=== PATIENT | female | born 1955 | race Caucasian/White ===

== ENCOUNTER → 2016-10-04 | Day surgery (SDC) | payer OTHER ==
[~2016-10-04] MED LIST: ALPR0.5T3 PO; BUPIVACAINE HCL PF 0.5% 30 ML VIAL ONE; CYCL1TAB29 PO; ESTR.3 PO; ESTR.625 PO; IBUP200T2 PO; MULT-65 PO; PROPOFOL 200 MG/20 ML AMP IV ONE; TRIAMCINOLONE ACETONIDE 40 MG/ML VIAL I-ARTICULR ONE; methylPREDNISolone ACETATE 40 MG/ML VIAL I-ARTICULR ONE
--- NOTE | 2016-10-05 22:08 | M6 ---
cc: MELINDA HILL M.D. DATE: 10/04/2016. DATE OF : 1955. PROCEDURE PERFORMED: Fluoroscopically-guided injection right sacroiliac joint. DESCRIPTION OF THE PROCEDURE IN DETAIL: History and physical was completed and signed. Consent was signed. Procedure site was marked. Medications were listed and reconciled. Pain score was recorded. Allergies were noted. Time out was taken. Fluoroscopy time was recorded where applicable. Sedation was administered or directed by Dr. Hill. The patient was given oxygen. The patient was monitored by a registered nurse. Total procedure time was greater than 15 minutes. IV was started, blood pressure cuff, pulse oximeter and EKG were applied. The patient was placed in the prone position on a Estiven table and sedated with small amounts of propofol titrated to effect. Vital signs were monitored and remained stable throughout the procedure. Fluoroscopy was used shooting from medial to lateral to clearly visualize the posterior joint line of the right sacroiliac joint. A sterile 5-inch 22-gauge spinal needle was advanced into the joint under fluoroscopic guidance. There was negative aspiration for blood or any other type of fluid and the patient was given 2 mL of 0.5% Marcaine, 20 mg of Depo-Medrol and 20 mg of Kenalog. Following the procedure, the patient was taken to the recovery room with stable vital signs neurologically intact. W. MD CAR Rondon/DAQUAN /9:42 AM /10:06 PM
== END | disposition home or self-care (01) ==
LOC: PHSDC 08:34
PROVIDERS: ATTEND Pain Medicine Interventional Pain Medicine
DX: M54.5 Low back pain (principal); M25.559 Pain in unspecified hip
CPT/HCPCS: 27096; 99152; J1030; J3301; G0260

== ENCOUNTER 2016-11-17 05:25 | Emergency (ER) | payer OTHER ==
[~2016-11-17] VITALS: Ht 167.6 cm; Wt 62.0 kg
[~2016-11-17 05:25] MED LIST changes: -BUPIVACAINE HCL PF 0.5% 30 ML VIAL ONE; -ESTR.3 PO; -PROPOFOL 200 MG/20 ML AMP IV ONE; -TRIAMCINOLONE ACETONIDE 40 MG/ML VIAL I-ARTICULR ONE; -methylPREDNISolone ACETATE 40 MG/ML VIAL I-ARTICULR ONE
[2016-11-17 05:28] VITALS: BP 165/78; PULSE 97; RESP 16; TEMP 97.9; O2SAT 98
--- NOTE | 2016-11-17 05:43 | PD ---
HPI Chief Complaint: Abdominal Pain Time Seen by Provider: 05:35 Travel History International Travel<30 days: No Contact w/Intl Traveler<30days: No Traveled to known affect area: No History of Present Illness HPI Patient is a 61-year-old female with history of recurrent diverticulitis who presents the emergency department with complaint of abdominal pain. Patient states that for the last days she has had pain in the left lower quadrant, radiates slightly throughout the rest of the abdomen. Pain is achy, occasionally sharp. Associated nausea but no vomiting. Denies any dysuria, frequency. Bowel movements have been regular without diarrhea, hematochezia. No fevers or chills. Patient states this feels fairly similar to her history of recurrent diverticulitis. She has had one microperforation that was managed medically, otherwise no complications from her diverticulitis. Patient is status post hysterectomy, appendectomy and cholecystectomy. PFSH Past Medical History Arthritis: Yes Blood Disorders: No Cancer: No Cardiovascular Problems: Yes (MVP) Diminished Hearing: No Diverticulitis: Yes Gastrointestinal Disorders: Yes Genitourinary: Yes Musculoskeletal: No Neurologic: No Psychiatric: No Respiratory: No Immunizations Current: Yes Menopausal: Yes : 2 Para: 2 Tubal Ligation: Yes Past Surgical History Abdominal Surgery: Yes AICD: No Appendectomy: Yes (1994) Cholecystectomy: Yes (1994) Gynecologic Surgery: Yes (HYSTERECTOMY) Hysterectomy: Yes (PARTIAL 1994) Neurologic Surgery: No Pacemaker: No Tonsillectomy: Yes (as a child) Other Surgery: Yes (UPPER AND LOWER BLEPHAROPLASTY) Social History Alcohol Use: Yes (OCCASIONAL) Tobacco Use: No Substance Use: No Allergies-Medications (Allergen,Severity, Reaction): Coded Allergies: Tylenol (Verified Allergy, Severe, Anaphylaxis, 11/17/16) Morphine (Verified Adverse Reaction, Intermediate, Nausea/Vomiting, 11/17/16 ) Reported Meds & Prescriptions Reported Meds & Active Scripts Active Zofran Odt (Ondansetron Odt) 8 Mg Tab 8 Mg SL Q8H PRN Oxycodone (Oxycodone HCl) 5 Mg Cap 5 Mg PO Q6H PRN Flagyl (Metronidazole) 500 Mg Tab 500 Mg PO TID 7 Days Ciprofloxacin (Ciprofloxacin HCl) 750 Mg Tab 750 Mg PO BID 7 Days Reported Premarin (Estrogens Conjugated) 0.625 Mg Tab 0.625 Mg PO DAILY Multi-Vitamin Daily (Multiple Vitamin) 1 Tab Tab 1 Tab PO DAILY Ibuprofen 200 Mg Tab 400 Mg PO Q6H PRN Flexeril (Cyclobenzaprine HCl) 10 Mg Tab 10 Mg PO TID Alprazolam 0.5 Mg Tab 0.5 Mg PO DAILY PRN Review of Systems Except as stated in HPI: all other systems reviewed are Neg Physical Exam Narrative GENERAL: Well-appearing female in mild distress SKIN: Focused skin assessment warm/dry. HEAD: Normocephalic. EYES: No scleral icterus. No injection or drainage. ENT: Mucous membranes pink and moist. NECK: Supple CARDIOVASCULAR: Regular rate and rhythm. RESPIRATORY: No accessory muscle use. GASTROINTESTINAL: Abdomen soft, left lower quadrant tenderness to palpation without rebound or guarding, nondistended. No CVA tenderness. MUSCULOSKELETAL: Normal gait NEUROLOGICAL: Awake and alert. Normal speech. PSYCHIATRIC: Appropriate mood and affect; insight and judgment normal. Data Data Last Documented VS Vital Signs Date Time Temp Pulse Resp B/P Pulse Ox O2 Delivery O2 Flow Rate FiO2 11/17/16 06:42 18 11/17/16 06:30 85 150/69 98 Room Air 11/17/16 05:28 97.9 Orders Complete Blood Count With Diff (11/17/16 05:39) Comprehensive Metabolic Panel (11/17/16 05:39) Lipase (11/17/16 05:39) Urinalysis - C+S If Indicated (11/17/16 05:39) Iv Access Insert/Monitor (11/17/16 05:39) Ecg Monitoring (11/17/16 05:39) Oximetry (11/17/16 05:39) Ondansetron Inj (Zofran Inj) (11/17/16 05:45) Sodium Chloride 0.9% Flush (Ns Flush) (11/17/16 05:45) Hydromorphone Pf Inj (Dilaudid Pf Inj) (11/17/16 05:45) Acetamin-Hydrocod 325-5 Mg ([place] 5-325 (11/17/16 05:45) Ciprofloxacin 400 Mg Premix (Cipro 400 M (11/17/16 05:45) Metronidazole 500 Mg Inj (Flagyl 500 Mg (11/17/16 05:45) Oxycodone (Roxicodone) (11/17/16 05:45) Labs Laboratory Tests Test 11/17/16 11/17/16 05:50 06:26 White Blood Count 10.1 TH/MM3 Red Blood Count 4.41 MIL/MM3 Hemoglobin 13.8 GM/DL Hematocrit 40.5 % Mean Corpuscular Volume 91.7 FL Mean Corpuscular Hemoglobin 31.3 PG Mean Corpuscular Hemoglobin 34.2 % Concent Red Cell Distribution Width 13.2 % Platelet Count 224 TH/MM3 Mean Platelet Volume 8.2 FL Neutrophils (%) (Auto) 79.3 % Lymphocytes (%) (Auto) 12.7 % Monocytes (%) (Auto) 7.2 % Eosinophils (%) (Auto) 0.6 % Basophils (%) (Auto) 0.2 % Neutrophils # (Auto) 8.0 TH/MM3 Lymphocytes # (Auto) 1.3 TH/MM3 Monocytes # (Auto) 0.7 TH/MM3 Eosinophils # (Auto) 0.1 TH/MM3 Basophils # (Auto) 0.0 TH/MM3 CBC Comment DIFF FINAL Differential Comment Sodium Level 139 MEQ/L Potassium Level 4.2 MEQ/L Chloride Level 105 MEQ/L Carbon Dioxide Level 25.9 MEQ/L Anion Gap 8 MEQ/L Blood Urea Nitrogen 14 MG/DL Creatinine 0.61 MG/DL Estimat Glomerular Filtration 100 ML/MIN Rate Random Glucose 106 MG/DL Calcium Level 8.4 MG/DL Total Bilirubin 0.6 MG/DL Aspartate Amino Transf 27 U/L (AST/SGOT) Alanine Aminotransferase 28 U/L (ALT/SGPT) Alkaline Phosphatase 78 U/L Total Protein 6.8 GM/DL Albumin 3.3 GM/DL Lipase 81 U/L Urine Color YELLOW Urine Turbidity CLEAR Urine pH 8.0 Urine Specific [place] 1.018 Urine Protein TRACE mg/dL Urine Glucose (UA) NEG mg/dL Urine Ketones NEG mg/dL Urine Occult Blood NEG Urine Nitrite NEG Urine Bilirubin NEG Urine Urobilinogen LESS THAN 2.0 MG/DL Urine Leukocyte Esterase NEG Urine RBC 1 /hpf Urine WBC LESS THAN 1 /hpf Urine Squamous Epithelial 1 /hpf Cells Urine Bacteria RARE /hpf Urine Mucus FEW /lpf Microscopic Urinalysis Comment CULT NOT INDICATED MDM Medical Decision Making Medical Screen Exam Complete: Yes Emergency Medical Condition: Yes Medical Record Reviewed: Yes Differential Diagnosis 61-year-old female with history of recurrent diverticulitis here with 1 day of left lower quadrant abdominal pain with nausea similar to her history of her diverticulitis. Differential includes diverticulitis, perforation, abscess, UTI /pyelonephritis, colitis, bowel obstruction, ureterolithiasis. Narrative Course Patient placed on monitor, IV established and blood obtained. Given 0.5 mg Dilaudid, 5 mg oxycodone, 4 mg Zofran and empirically treated with IV Cipro and Flagyl. CBC, CMP, lipase and urinalysis were obtained and unremarkable. Patient felt improved and will be discharged home with antibiotic therapy, analgesics and antiemetics. Diagnosis Primary Impression: Diverticulitis Qualified Code: K57.32 - Diverticulitis of large intestine without perforation or abscess without bleeding Additional Impression: Abdominal pain Qualified Code: R10.32 - Left lower quadrant pain Referrals: Primary Care Physician as needed Additional Instructions: Zofran as needed for nausea, vomiting. Oxycodone as needed for pain. Cipro and Flagyl antibiotics. Follow-up with primary care provider if symptoms persist and return to the ER for the warning signs discussed. Med/Other Pt SpecificInfo: Prescription(s) given Scripts Ondansetron Odt (Zofran Odt)8 Mg Tab8 Mg SL Q8H PRN (NAUSEA OR VOMITING) #10 TAB Ref 0 Prov:Catrachita Carroll MD 11/17/16 Oxycodone 5 Mg Cap5 Mg PO Q6H PRN (PAIN) #15 CAP Ref 0 Prov:Catrachita Carroll MD 11/17/16 Metronidazole (Flagyl)500 Mg [id number] Mg PO TID 7 Days Ref 0 Prov:Catrachita Carroll MD 11/17/16 Ciprofloxacin 750 Mg Top669 Mg PO BID 7 Days Ref 0 Prov:Catrachita Carroll MD 11/17/16 Disposition: 01 DISCHARGE HOME Condition: Stable Catrachita Carroll MD Nov 17, 2016 05:43
[2016-11-17] MEDS ORDERED: SODIUM CHLORIDE 0.9% FLUSH 10 ML FLUSH IV FLUSH PRN (05:45)
[2016-11-17] MEDS ORDERED: ONDANSETRON HCL 4 MG/2 ML VIAL IVP ONE (05:45)
[2016-11-17] MEDS ORDERED: HYDROmorphone HCL PF 1 MG/ML VIAL IVS ONE (05:45)
[2016-11-17] MEDS ORDERED: ACETAMINOPHEN/HYDROcodone 325 MG/5 MG TAB PO ONE (05:45)
[2016-11-17] MEDS ORDERED: CIPROFLOXACIN 400 MG PREMIX 200 ML IV ONE (05:45)
[2016-11-17] MEDS ORDERED: metroNIDAZOLE 500 MG INJ 100 ML IV ONE (05:45)
[2016-11-17 05:54] VITALS: RESP 18; O2SAT 100
[2016-11-17 05:58] LABS: BASOPHIL % 0.2 % (0.0-2.0); EOSINOPHIL # 0.1 TH/MM3 (0-0.4); EOSINOPHIL % 0.6 % (0.0-4.0); HEMATOCRIT 40.5 % (35.0-46.0); HEMO FLAGS DIFF FINAL; LYMPH % 12.7 % (9.0-44.0); LYMPHOCYTE # 1.3 TH/MM3 (1.0-4.8); MEAN CELL VOLUME 91.7 FL (80.0-100.0); MEAN CORPUSCULAR HEMOGLOBIN 31.3 PG (27.0-34.0); MEAN CORPUSCULAR HGB CONC 34.2 % (32.0-36.0); MONO % 7.2 % (0.0-8.0); NEUT % 79.3 % (16.0-70.0); PLATELET COUNT 224 TH/MM3 (150-450); RED BLOOD COUNT 4.41 MIL/MM3 (4.00-5.30); RED CELL DISTRIBUTION WIDTH 13.2 % (11.6-17.2); WHITE BLOOD COUNT 10.1 TH/MM3 (4.0-11.0)
[2016-11-17 06:23] LABS: ALKALINE PHOSPHATASE 78 U/L (45-117); TOTAL BILIRUBIN ADULT 0.6 MG/DL (0.2-1.0)
[2016-11-17 06:30] VITALS: BP 150/69; PULSE 85; RESP 18; O2SAT 98
[2016-11-17 06:32] LABS: ALT (GPT) 28 U/L (10-53); ANION GAP 8 MEQ/L (5-15); AST (GOT) 27 U/L (15-37); BICARBONATE 25.9 MEQ/L (21.0-32.0); BLOOD UREA NITROGEN 14 MG/DL (7-18); CHLORIDE 105 MEQ/L (98-107); GLOMERULAR FILTRATION RATE 100 ML/MIN (>89); POTASSIUM 4.2 MEQ/L (3.5-5.1); SODIUM (NA) 139 MEQ/L (136-145)
[2016-11-17] MEDS ORDERED: OXYC1CAP PO (06:38)
[2016-11-17] MEDS ORDERED: METR-1 PO (06:38)
[2016-11-17] MEDS ORDERED: CIPR750T2 PO (06:38)
[2016-11-17] MEDS ORDERED: ZOFR8TAB4 SL (06:38)
[2016-11-17 06:48] LABS: BACTERIA, URINE RARE /hpf; BLOOD, URINE NEG (NEG); COMMENT (UR) CULT NOT INDICATED; CULTURE IF INDICATED CULT NOT INDICATED; GLUCOSE,URINE NEG (NEG); KETONE, URINE NEG (NEG); MUCUS URINE FEW /lpf (OCC); NITRITE,URINE NEG (NEG); SQUAMOUS EPITHELIAL CELL URINE 1 /hpf (0-5); URINE COLOR YELLOW (YELLW/STRAW)
[2016-11-17 07:00] VITALS: BP 135/64; PULSE 87; RESP 20; O2SAT 97
[2016-11-17] MEDS ORDERED: HYDROmorphone HCL PF 1 MG/ML VIAL IV PUSH ONE (07:00)
== END 2016-11-17 08:03 | disposition home or self-care (01) ==
LOC: NEPE 05:25
DX: K57.32 Diverticulitis of large intestine without perforation or abscess without bleeding (principal); Z90.710 Acquired absence of both cervix and uterus
CPT/HCPCS: 80053; 81001; 83690; 85025; 96365; 96366; 96375; 99284; J0744; J1170; J2405

== ENCOUNTER → 2017-01-15 | Outpatient (CLI) | payer OTHER ==
[~2017-01-15] VITALS: Ht 159 cm; Wt 70.8 kg
[~2017-01-15] MED LIST changes: +CHLORHEXIDINE GLUCONATE 2 % 1 PACK (2 CLOTHS) TOPICAL PRN; +CIPR750T2 PO; +DEXTROSE 5% IN WATE 1000ML INJ 1,000 ML IV SCH; +INSULIN HUMAN REGULAR 1,000 UNITS/10 ML VIAL SQ PRN; +LACTATED RINGER'S 1000 ML IV PRN; +LIDOCAINE HCL 1% PF 5 ML AMPULE OTHER ONE; +METOPROLOL TARTRATE 25 MG TAB PO PRN; +METR-1 PO; +OXYC1CAP PO; +POVIDONE IODINE 5% (ANTISEPSIS KIT) 4 APPLICATIONS EACH NARE PRN; +PROPOFOL 200 MG/20 ML AMP IV PUSH ONE; +SODIUM CHLORID 0.9% 500 ML IV PRN; +VECURONIUM BROMIDE 20 MG VIAL IV ONE; +ZOFR8TAB4 SL
[2017-01-15 11:02] VITALS: BP 152/80; PULSE 23; RESP 16; TEMP 97.9; O2SAT 97
--- NOTE | 2017-01-15 11:50 | PD.HP.UP ---
H&P Update Note The Pre-Admit History and Physical Examination regarding the above named patient was reviewed (including, but not limited to, vital signs, heart, lungs, co-morbid conditions), and upon re-examination it is noted that: the patient's condition has not significantly changed since the last examination. Norris Posey MD Jan 15, 2017 11:50
--- NOTE | 2017-01-15 13:36 | MR ---
cc: SHITAL RIOS ANDREW H. M.D. DATE 01/15/2017 PREOPERATIVE DIAGNOSIS History of diverticulitis, abnormal CT scan. PROCEDURE Colonoscopy to cecum. POSTOPERATIVE DIAGNOSIS 1. Normal cecum, ileocecal valve 2. Pancolonic diverticulosis 3. Tortuous rectosigmoid with diverticulosis SURGEON Dr. Posey PROCEDURE The patient was placed in the left lateral decubitus position after adequate anesthesia sedation. Rectal exam confirmed the emptiness in the rectal vault. The Olympus colonoscope was then introduced into rectum and advanced easily under direct vision through the proximal colon until the cecum was identified. The ileocecal valve was normal. There were no vascular abnormalities noted in the cecum. The colonoscope was then gradually withdrawn noting pancolonic diverticulosis. There was some tortuosity and redundancy of the sigmoid colon. Diverticulosis was noted, but no evidence of narrowing or excessive mucosal edema. No polyps were seen. No evidence of acute mucosal colitis. The distal rectosigmoid appeared pretty normal. The patient tolerated the procedure quite well and was brought to the recovery room in stable condition. MD KRYSTINA Fofana/KIRBY /12:57 PM /1:28 PM
--- NOTE | 2017-01-15 13:58 | EKG ---
Date Performed: 01/15/2017 Time Performed: 10:51:56 PTAGE: 61 years EKG: Sinus rhythm BORDERLINE ECG PREVIOUS TRACING : 05/17/2013 12.31 DOCTOR: Azael Charles Interpretating Date/Time 01/15/2017 13:57:04
[2017-01-15 14:06] VITALS: BP 172/83; PULSE 82; RESP 18; TEMP 97.7; O2SAT 97
--- NOTE | 2017-01-31 17:20 | HHI.PR ---
Subjective Remarks Pt was stable post-op A/P Assessment and Plan OK for dc home RTO 1 -2 weeks Norris oPsey MD Jan 31, 2017 17:20
== END ==
LOC: HSDC 10:03
PROVIDERS: ATTEND Colon & Rectal Surgery
DX: K57.30 Diverticulosis of large intestine without perforation or abscess without bleeding (principal); R94.8 Abnormal results of function studies of other organs and systems; Z01.810 Encounter for preprocedural cardiovascular examination
CPT/HCPCS: 00810; 45378; 93005; J7120

== ENCOUNTER → 2017-03-18 | Outpatient (CLI) | payer OTHER ==
[~2017-03-18] MED LIST changes: -CHLORHEXIDINE GLUCONATE 2 % 1 PACK (2 CLOTHS) TOPICAL PRN; -CIPR750T2 PO; +CYCL10TA PO; -CYCL1TAB29 PO; -DEXTROSE 5% IN WATE 1000ML INJ 1,000 ML IV SCH; -IBUP200T2 PO; +IBUP200T47 PO; -INSULIN HUMAN REGULAR 1,000 UNITS/10 ML VIAL SQ PRN; -LACTATED RINGER'S 1000 ML IV PRN; -LIDOCAINE HCL 1% PF 5 ML AMPULE OTHER ONE; -METOPROLOL TARTRATE 25 MG TAB PO PRN; -METR-1 PO; -OXYC1CAP PO; -POVIDONE IODINE 5% (ANTISEPSIS KIT) 4 APPLICATIONS EACH NARE PRN; -PROPOFOL 200 MG/20 ML AMP IV PUSH ONE; -SODIUM CHLORID 0.9% 500 ML IV PRN; -VECURONIUM BROMIDE 20 MG VIAL IV ONE; -ZOFR8TAB4 SL
[2017-03-18 09:49] LABS: AUTOMATED NEUTROPHIL # 2.6 TH/MM3 (1.8-7.7); BASOPHIL % 0.3 % (0.0-2.0); EOSINOPHIL % 1.1 % (0.0-4.0); HEMATOCRIT 39.4 % (35.0-46.0); HEMO FLAGS DIFF FINAL; LYMPHOCYTE # 1.2 TH/MM3 (1.0-4.8); MEAN CELL VOLUME 90.6 FL (80.0-100.0); MEAN CORPUSCULAR HEMOGLOBIN 31.1 PG (27.0-34.0); MEAN CORPUSCULAR HGB CONC 34.3 % (32.0-36.0); MONO % 6.6 % (0.0-8.0); PLATELET COUNT 241 TH/MM3 (150-450); RED BLOOD COUNT 4.35 MIL/MM3 (4.00-5.30); RED CELL DISTRIBUTION WIDTH 12.9 % (11.6-17.2); WHITE BLOOD COUNT 4.1 TH/MM3 (4.0-11.0)
[2017-03-18 13:02] LABS: BACTERIA, URINE RARE /hpf; BLOOD, URINE NEG (NEG); COMMENT (UR) CULT NOT INDICATED; CULTURE IF INDICATED CULT NOT INDICATED; GLUCOSE,URINE NEG (NEG); KETONE, URINE NEG (NEG); MUCUS URINE FEW /lpf (OCC); NITRITE,URINE NEG (NEG); SQUAMOUS EPITHELIAL CELL URINE 1 /hpf (0-5); URINE COLOR YELLOW (YELLW/STRAW)
[2017-03-18 13:03] LABS: ANION GAP 7 MEQ/L (5-15); AST (GOT) 21 U/L (15-37); BICARBONATE 26.7 MEQ/L (21.0-32.0); BLOOD UREA NITROGEN 16 MG/DL (7-18); CHLORIDE 104 MEQ/L (98-107); GLOMERULAR FILTRATION RATE 106 ML/MIN (>89); GLUCOSE,FASTING 93 MG/DL (74-99); POTASSIUM 3.8 MEQ/L (3.5-5.1); SODIUM (NA) 138 MEQ/L (136-145)
[2017-03-18 13:28] LABS: ALKALINE PHOSPHATASE 64 U/L (45-117); ALT (GPT) 24 U/L (10-53); FREE T3 2.58 PG/ML (2.18-3.98); FREE T4 1.06 NG/DL (0.76-1.46); HDL CHOLESTEROL 77.3 MG/DL (40.0-60.0); LDL CHOLESTEROL 120 MG/DL (0-99); TOTAL BILIRUBIN ADULT 0.4 MG/DL (0.2-1.0)
[2017-03-18 15:01] LABS: HEMOGLOBIN A1b 0.8 %; HEMOGLOBIN F 0.7 %; HEMOGLOBIN LA1C 1.9 %; HEMOGLOBIN P3 3.6 %
== END ==
LOC: OLAB 09:26
PROVIDERS: ATTEND Internal Medicine
DX: E78.5 Hyperlipidemia, unspecified (principal); I10 Essential (primary) hypertension; M85.9 Disorder of bone density and structure, unspecified; R53.83 Other fatigue; Z79.899 Other long term (current) drug therapy; Z12.11 Encounter for screening for malignant neoplasm of colon
CPT/HCPCS: 80053; 80061; 81001; 82607; 82652; 83036; 84439; 84443; 84481; 85025

== ENCOUNTER → 2017-03-20 | Day surgery (SDC) | payer OTHER ==
[~2017-03-20] MED LIST changes: +IOHEXOL 180 MG/ML 20 ML VIAL (for RAD DIAG) EPIDURAL ONE; +LIDOCAINE HCL 1% 30 ML VIAL NERV BLOCK ONE; +PROPOFOL 200 MG/20 ML AMP IV ONE; +TRIAMCINOLONE ACETONIDE 40 MG/ML VIAL NERV BLOCK ONE
--- NOTE | 2017-03-20 10:02 | M6 ---
cc: CCList DATE 03/20/2017 DATE OF 1955 PROCEDURE Fluoroscopically guided right L4-5 transforaminal epidural steroid injection. History and physical was completed and signed. Consent was signed. Procedure site was marked. Medications were listed and reconciled. Pain score was recorded. Allergies were noted. Time out was taken. Fluoroscopy time was recorded where applicable. Sedation was administered or directed by Dr. Hill. The patient was given oxygen. The patient was monitored by a registered nurse. Total procedure time was greater than 15 minutes. PROCEDURE NOTE An IV was started, blood pressure cuff, pulse oximeter and EKG were applied. The patient was placed in the prone position on a Estiven table, sedated with small amounts of Versed and propofol titrated to effect. Vital signs were monitored and remained stable throughout the procedure. The patient remained responsive throughout the procedure. The lumbar area was scrubbed with antimicrobial solution, prepped with 10% Betadine solution, and draped with sterile drapes. Fluoroscopy was used in both the AP and lateral projections to clearly visualize the right L4-5 neural foramen. Then separate sterile 22 gauge, 3 1/2-inch Chiba needles were advanced under fluoroscopic guidance into the dorsal-most aspect of each foramen. There was negative aspiration for blood or CSF. There were no reported paresthesias by the patient. There was no washout of 2 mL of Omnipaque. Then after waiting approximately 60 seconds, the patient was slowly given 3 mL of 1% Xylocaine, 3 mL of Omnipaque and 60 mg of Kenalog at that location. Following this, the patient was taken to the recovery room with stable vital signs, neurologically intact. W. Smith Hill MD WRM/SSB /9:38 AM /9:43 AM
== END | disposition home or self-care (01) ==
LOC: PHSDC 07:56
PROVIDERS: ATTEND Pain Medicine Interventional Pain Medicine
DX: M54.41 Lumbago with sciatica, right side (principal)
CPT/HCPCS: 64483; 99152; J3301; Q9965

== ENCOUNTER → 2017-04-24 | Outpatient (CLI) | payer OTHER ==
[~2017-04-24] MED LIST changes: +DIOV80TA4 PO; -IOHEXOL 180 MG/ML 20 ML VIAL (for RAD DIAG) EPIDURAL ONE; -LIDOCAINE HCL 1% 30 ML VIAL NERV BLOCK ONE; +PRIL20TA2 PO; -PROPOFOL 200 MG/20 ML AMP IV ONE; -TRIAMCINOLONE ACETONIDE 40 MG/ML VIAL NERV BLOCK ONE
[2017-04-24 09:06] LABS: AUTOMATED NEUTROPHIL # 2.6 TH/MM3 (1.8-7.7); BASOPHIL % 0.5 % (0.0-2.0); EOSINOPHIL # 0.1 TH/MM3 (0-0.4); EOSINOPHIL % 1.1 % (0.0-4.0); HEMATOCRIT 39.5 % (35.0-46.0); HEMOGLOBIN 13.5 GM/DL (11.6-15.3); LYMPH % 32.3 % (9.0-44.0); LYMPHOCYTE # 1.5 TH/MM3 (1.0-4.8); MEAN CELL VOLUME 90.6 FL (80.0-100.0); MEAN CORPUSCULAR HGB CONC 34.2 % (32.0-36.0); MEAN PLATELET VOLUME 7.3 FL (7.0-11.0); MONO % 8.3 % (0.0-8.0); MONOCYTE # 0.4 TH/MM3 (0-0.9); NEUT % 57.8 % (16.0-70.0); PLATELET COUNT 298 TH/MM3 (150-450); RED BLOOD COUNT 4.36 MIL/MM3 (4.00-5.30); RED CELL DISTRIBUTION WIDTH 12.7 % (11.6-17.2); WHITE BLOOD COUNT 4.6 TH/MM3 (4.0-11.0)
[2017-04-24 12:51] LABS: AMORPHOUS SEDIMENT, URINE MANY; BACTERIA, URINE OCC /hpf; BILIRUBIN, URINE NEG (NEG); BLOOD, URINE NEG (NEG); GLUCOSE,URINE NEG (NEG); KETONE, URINE NEG (NEG); MUCUS URINE FEW /lpf (OCC); NITRITE,URINE NEG (NEG); SQUAMOUS EPITHELIAL CELL URINE 1 /hpf (0-5); URINE COLOR YELLOW (YELLW/STRAW); URINE LEUKOCYTE ESTERASE NEG (NEG)
[2017-04-24 12:53] LABS: ALBUMIN 3.7 GM/DL (3.4-5.0); ALT (GPT) 33 U/L (10-53); AST (GOT) 14 U/L (15-37); BICARBONATE 28.6 MEQ/L (21.0-32.0); BLOOD UREA NITROGEN 17 MG/DL (7-18); CALCIUM 8.6 MG/DL (8.5-10.1); CHLORIDE 106 MEQ/L (98-107); CREATININE 0.55 MG/DL (0.50-1.00); GLOMERULAR FILTRATION RATE 113 ML/MIN (>89); GLUCOSE,FASTING 94 MG/DL (74-99); INTERNATIONAL NORMALIZED RATIO 0.9 RATIO; PROTHROMBIN TIME - PATIENT 9.4 SEC (9.8-11.6); SODIUM (NA) 139 MEQ/L (136-145)
[2017-04-24 12:55] LABS: ALKALINE PHOSPHATASE 66 U/L (45-117); TOTAL BILIRUBIN ADULT 0.4 MG/DL (0.2-1.0); TOTAL PROTEIN 7.2 GM/DL (6.4-8.2)
== END ==
LOC: OLAB 08:47
PROVIDERS: ATTEND Neurological Surgery
DX: Z01.812 Encounter for preprocedural laboratory examination (principal)
CPT/HCPCS: 80053; 81001; 85025; 85610; 85730

== ENCOUNTER → 2017-04-30 | Outpatient (CLI) | payer OTHER ==
[~2017-04-30] MED LIST changes: +OXYC-395 PO; +ZOFR4TAB PO
--- NOTE | 2017-04-30 12:07 | RADRPT ---
EXAM DATE/TIME: 04/30/2017 12:00 [facility] COMPARISON: CHEST PA & LAT, May 17, 2013, 9:18. INDICATIONS : Evaluate for pneumonia, pneumothorax, or communicable disease. Pre-op laminotomy. MEDICAL HISTORY : None. SURGICAL HISTORY : None. ENCOUNTER: Initial ACUITY: 1 day PAIN SCORE: 0/10 LOCATION: Bilateral chest FINDINGS: PA and lateral views of the chest demonstrate the lungs to be symmetrically aerated without evidence of mass, infiltrate or effusion. The cardiomediastinal contours are unremarkable. Osseous structure s are intact. CONCLUSION: Normal examination. Azael Elias MD on April 30, 2017 at 12:04 Board Certified Radiologist. This report was verified electronically.
== END ==
LOC: CPRE 11:18
PROVIDERS: ATTEND Neurological Surgery
DX: Z01.812 Encounter for preprocedural laboratory examination (principal); Z01.811 Encounter for preprocedural respiratory examination; M51.36 Other intervertebral disc degeneration, lumbar region; M71.38 Other bursal cyst, other site
CPT/HCPCS: 71046; 87640; 87641

== ENCOUNTER 2017-05-07 05:52 | Inpatient (IN) | payer OTHER ==
[~2017-05-07] VITALS: Ht 157.5 cm; Wt 69.8 kg
[~2017-05-07 05:52] MED LIST changes: -OXYC-395 PO; -ZOFR4TAB PO
[2017-05-07] MEDS ORDERED: VANCOMYCIN 1000 MG/NS 250 ML ON-CALL IV SCH ×2 (06:15)
[2017-05-07] MEDS ORDERED: SODIUM CHLOR 0.9% 1000 ML INJ 1,000 ML IV SCH (06:15)
[2017-05-07] MEDS ORDERED: POVIDONE IODINE 5% (ANTISEPSIS KIT) 4 APPLICATIONS EACH NARE PRN (06:30)
[2017-05-07] MEDS ORDERED: CHLORHEXIDINE GLUCONATE 2 % 1 PACK (2 CLOTHS) TOPICAL PRN (06:30)
[2017-05-07] MEDS ORDERED: METOPROLOL TARTRATE 25 MG TAB PO PRN (06:30)
[2017-05-07] MEDS ORDERED: LACTATED RINGER'S 1000 ML IV PRN (06:30)
[2017-05-07] MEDS ORDERED: SODIUM CHLORID 0.9% 500 ML IV PRN (06:30)
[2017-05-07] MEDS ORDERED: methylPREDNISolone ACETATE 40 MG/ML VIAL ONE (07:14)
[2017-05-07] MEDS ORDERED: BUPIVACAINE/EPINEPHRINE 0.5% 50 ML VIAL ONE (07:14)
[2017-05-07] MEDS ORDERED: THROMBIN (TOPICAL) 5,000 UNIT VIAL ONE (07:14)
[2017-05-07] MEDS ORDERED: VANCOMYCIN HCL 1000 MG VIAL ONE (07:14)
[2017-05-07] MEDS ORDERED: GELFOAM SIZE 100 ONE (07:15)
[2017-05-07] MEDS ORDERED: fentaNYL CITRATE 250 MCG/5 ML AMP ONE ×2 (07:15)
[2017-05-07] MEDS ORDERED: MIDAZOLAM HCL 5 MG/5 ML VIAL ONE (08:04)
--- NOTE | 2017-05-07 08:23 | MH ---
cc: SHITAL RIOS MD, ROHIT MAYFIELD, W. ROSS DATE OF ADMISSION 05/07/2017 ADMISSION DIAGNOSIS 1. Synovial cyst lumbar facet joint. 2. Facet arthropathy lumbar spine HISTORY OF PRESENT ILLNESS This is a 61-year-old female who presented to our office on 02/08/2016 as well as 02/26/2017 with complaints of lumbosacral back pain with radiation to the right buttock and lateral thigh and, at times, into the lateral aspect of the leg with associated paresthesias. She was found have bilateral L4-L5, L5-S1 facet arthropathy but no significant spinal stenosis or foraminal stenosis on her 02/08/2016 visit. She called our office with worsening complaints of bilateral leg pain and a followup MRI scan was obtained for further evaluation. At her visit on 02/26/2017, she complained of right buttock and right lateral leg pain. She states that the pain was not as excruciating as it was a year ago. However, she had more numbness now in a similar distribution. She states that she has paresthesias on her foot on the right side. She states her leg reynaldo. She denies any bowel or bladder incontinence. She has urinary frequency but states this is chronic. She has had three sacroiliac injections with pain management. She states that the injections have not provided her with any significant relief. She rates her pain as 3-4/10, but with activity it increases to 8-9/10 on a pain scale. PAST MEDICAL HISTORY 1. Hyperlipidemia, 2. Gastroesophageal reflux disease, 3. Osteoarthritis, 4. Anxiety. MEDICATIONS current, 1. Premarin 0.65 mg p.o. daily. 2. Multivitamin daily. 3. Flexeril 10 mg q.8 h p.r.n. muscle spasms. 4. Alprazolam 0.5 mg p.o. daily p.r.n. anxiety. ALLERGIES ACETAMINOPHEN - ANAPHYLAXIS MORPHINE - CAUSES CHEST PAIN FAMILY HISTORY Mother is alive at 86 years old, father is alive at 87 years old. Her sister is alive at 66 years old. Her mother has a history of hypertension and breast cancer. Her father has a history of mild cognitive disorder. His sister has history of hypertension and obesity. SOCIAL HISTORY She is a retired nurse here at [employer]. She is . She has two children. She does not smoke. She drinks alcohol, one or more drinks per week. REVIEW OF SYSTEMS CONSTITUTIONAL: Denies any fever or chills EYES: No blurred vision, double vision. ENT: No pharyngitis, exudates or bloody drainage from her nose. CARDIOVASCULAR: She denies any chest pain, occasional palpitations RESPIRATORY: No cough or shortness of breath GASTROINTESTINAL: No nausea, vomiting, abdominal pain. GENITOURINARY:: No dysuria or hematuria. MUSCULOSKELETAL: Positive for low back pain and leg pain. NEUROLOGIC: No difficulty with speech or memory. PSYCHIATRIC: No anxiety or depression symptoms. SKIN: No rashes or pruritus. ENDOCRINE: No polyuria, polydipsia. HEMATOLOGIC: No bruising or bleeding tendencies. PHYSICAL EXAMINATION HEAD: Normocephalic, atraumatic NECK: Supple. No carotid bruits heard on auscultation. LUNGS: Clear to auscultation bilaterally HEART: Regular rate and rhythm, normal S1, S2. ABDOMEN: Soft, nontender. Positive bowel sounds. SKIN: Reveals no cyanosis or erythema. MUSCULOSKELETAL: She has mild right EHL weakness otherwise 5/5 strength in the lower extremities. She ambulates without any assistive device. NEUROLOGIC: She is awake, alert, oriented. Cranial nerves II-XII appear grossly intact. His speech is fluent. Comprehension is good. Reflexes are 2+ in the lower extremities. IMAGING STUDIES I Reviewed MRI of the lumbar spine from February 17, 2007. reveals development of a moderate size right L4/L5 synovial cyst with spinal and foraminal stenosis along with multilevel facet hypertrophy and disk degeneration. IMPRESSION A 61-year-old female with a chronic history of right paraspinal buttock area pain radiating into the posterior lateral thigh and calf and dorsal and plantar aspect of the foot with numbness in lateral aspect of the foot. She has had the symptoms for over a year, but they have progressed and limit her activity status. She has been using ibuprofen and Celebrex as well as muscle relaxers. Her MRI scan reveals she has developed a moderate sized right L4-L5 synovial cyst with spinal and foraminal stenosis along with multilevel facet hypertrophy and disk degeneration. PLAN We have discussed treatment options with the patient and she has elected to proceed with surgical intervention. We have discussed with her a right L4-L5 hemilaminotomy with synovial cyst resection. We have discussed the procedure as well as the risk, benefit, alternative and recovery time in great detail with the patient. We have discussed the risks involved with surgery include but not limited to bleeding, infection, muscle weakness, voice hoarseness, difficulty swallowing, heart attack, stroke, blood clots as well as cyst reaccumulation among others. The patient states that she understands the procedure and she is requesting that we proceed and she was therefore scheduled accordingly. Dictated by John Apodaca PA-C MD SAMMIE Serrano/ /5:27 PM /8:18 AM
[2017-05-07] MEDS ORDERED: DO NOT ADM ANY ANTICOAGULANT DRUGS PRN (10:47)
[2017-05-07] MEDS ORDERED: ONDANSETRON HCL 4 MG/2 ML VIAL IV PUSH PRN (11:00)
[2017-05-07] MEDS ORDERED: ACETAMINOPHEN/HYDROcodone 325 MG/10 MG TAB PO PRN (11:00)
[2017-05-07] MEDS ORDERED: CYCLOBENZAPRINE HCL 10 MG TAB PO PRN (11:00)
[2017-05-07] MEDS ORDERED: MORPHINE SULFATE 2 MG/ML INJ IM PRN (11:00)
[2017-05-07] MEDS ORDERED: IBUPROFEN 200 MG TAB PO PRN (11:00)
[2017-05-07] MEDS ORDERED: ALPRAZolam 0.5 MG TAB PO PRN (11:00)
[2017-05-07] MEDS ORDERED: OXYC-395 PO (11:03)
[2017-05-07] MEDS ORDERED: CYCL10TA PO (11:03)
[2017-05-07] MEDS ORDERED: HYDROmorphone HCL PF 2 MG/ML VIAL ONE (11:05)
--- NOTE | 2017-05-07 11:09 | PD.OP ---
MD Smith Gao MD Operative Report Date of Surgery: May 07, 2017 Preoperative Diagnosis: Right L4-5 synovial cyst with spinal and foraminal stenosis and associated back pain with intractable radiculopathy Postoperative Diagnosis: Same Procedure: Right L4-5 hemilaminotomy with synovial cyst resection; microsurgical technique Anesthesia: Gen. endotracheal by Kyle meng Surgeon: Lito Lima M.D. Jelly Maker(s): Nancie Pulido Operation and Findings: Following administration of general endotracheal anesthesia, patient received vancomycin 1 g intravenously. Sequential compression devices were placed for DVT prophylaxis. She was then turned in prone position on [place] frame and the Estiven table and all pressure points adequately padded. The lumbar region was then shaved and prepped with a Betadine and ChloraPrep. Sterile draping undertaken with Ioban. Midline incision overlying the L4-5 level was then made after infiltrating the skin with 0.5% Marcaine with epinephrine solution. The skin incision was made extending down through the fascia and then using the subperiosteal plane on the right side the muscular attachments to the spinous process and lamina were detached. Intraoperative fluoroscopy was used for level confirmation and further dissection undertaken using microtechnique with microscope magnification. The inferior portion of the L4 and superior portion of the L5 lamina was then drilled out and the underlying ligamentum flavum also removed. There was facet arthropathy noted in the medial portion of facet was also resected and the lateral recess decompressed and the large synovial cyst originating from the facet extending medially into the spinal canal as well as the foramen was identified. Synovial cyst was resected with internal gelatinous yellowish material. The cyst wall was adherent to the dura which was gently peeled off and no CSF leak or dural perforation encountered. Epidural venous stasis which he with the bipolar cautery along with Gelfoam and thrombin. Depo-Medrol 40 mg was injected in the epidural space. The retractors removed and the muscle fascia proximal using 2-0 Vicryl interrupted stitches. 3 -0 Vicryl subcuticular stitches were also placed in an interrupted fashion and planned skin closure was with Mastisol and Steri-Strips. A sterile dressing was then applied and the patient then turned in the supine position and extubated and taken to recovery room in stable condition. There were no intraoperative complications and all sponge and needle count was correct at the end of the procedure. Estimated blood loss about 25 cc. Lito Lima MD May 07, 2017 11:09
[2017-05-07] MEDS ORDERED: ZOFR4TAB PO (11:13)
[2017-05-07] MEDS ORDERED: ONDANSETRON HCL 4 MG/2 ML VIAL IV ONE (12:00)
[2017-05-07] MEDS ORDERED: ROCURONIUM INJ 50 MG/5 ML SYRINGE IV PUSH ONE (12:00)
[2017-05-07] MEDS ORDERED: GLYCOPYRROLATE 1 MG/5 ML SYRINGE IV PUSH ONE (12:00)
[2017-05-07] MEDS ORDERED: LIDOCAINE HCL 1% PF 5 ML SYRINGE OTHER ONE (12:00)
[2017-05-07] MEDS ORDERED: DEXAMETHASONE SOD PHOS 4 MG/ML VIAL IV ONE (12:00)
[2017-05-07] MEDS ORDERED: NEOSTIGMINE 5 MG/5 ML SYRINGE IV PUSH ONE (12:00)
[2017-05-07] MEDS ORDERED: PROPOFOL 200 MG/20 ML AMP IV ONE (12:00)
[2017-05-07] MEDS ORDERED: PHENYLEPH/NS 1000 MCG/10 ML SYR IV ONE (12:00)
[2017-05-07 12:30] VITALS: BP 150/82; PULSE 83; RESP 18; TEMP 98.6; O2SAT 100
--- NOTE | 2017-05-07 13:12 | RADRPT ---
EXAM DATE/TIME: 05/07/2017 09:14 [facility] COMPARISON: No previous studies available for comparison. INDICATIONS : L4-L5 Laminectomy. MEDICAL HISTORY : None. SURGICAL HISTORY : None. ENCOUNTER: Initial ACUITY: 1 day PAIN SCORE: Non-responsive. LOCATION: lumbar CONCLUSION: Fluoroscopic image demonstrates temporary probes overlying the posterior elements at L4. Radiopaque d ensities are also seen overlying the spinous process at L4. John Tamez MD on May 07, 2017 at 13:09 Board Certified Radiologist. This report was verified electronically.
[2017-05-08] MEDS ORDERED: VALSARTAN 80 MG TAB PO SCH (09:00)
[2017-05-08] MEDS ORDERED: MULTIVITAMIN TAB PO SCH (09:00)
[2017-05-08] MEDS ORDERED: ESTROGENS CONJUGATED 0.625 MG TAB PO SCH (09:00)
[2017-05-08] MEDS ORDERED: PANTOPRAZOLE SOD 20 MG DELAYED RELEASE TAB PO SCH (09:00)
== END 2017-05-07 14:00 | disposition home or self-care (01) | DRG 520 ==
LOC: HSDI 05:52
PROVIDERS: ADMIT Neurological Surgery; ATTEND Neurological Surgery
PROC: 0SB00ZZ Excision of Lumbar Vertebral Joint, Open Approach (ICD-10-PCS; principal; 2017-05-07 08:42)
DX: M48.061 Spinal stenosis, lumbar region without neurogenic claudication (principal); M71.38 Other bursal cyst, other site; M46.86 Other specified inflammatory spondylopathies, lumbar region; M54.16 Radiculopathy, lumbar region; K21.9 Gastro-esophageal reflux disease without esophagitis; E78.5 Hyperlipidemia, unspecified; F41.9 Anxiety disorder, unspecified; M19.90 Unspecified osteoarthritis, unspecified site
CPT/HCPCS: 72020; 76000; J1030; J1100; J1170; J2250; J2370; J2405; J2710; J3010; J3370; J7050; J7120

== ENCOUNTER → 2017-09-01 | Outpatient (CLI) | payer OTHER ==
[~2017-09-01] MED LIST changes: +CELE200C PO; +GABA300C5 PO; +OXYC-395 PO; +PREN29TA PO; +ZOFR4TAB PO
[2017-09-01 13:29] LABS: AUTOMATED NEUTROPHIL # 2.9 TH/MM3 (1.8-7.7); BASOPHIL % 0.5 % (0.0-2.0); EOSINOPHIL # 0.1 TH/MM3 (0-0.4); EOSINOPHIL % 1.1 % (0.0-4.0); HEMATOCRIT 40.3 % (35.0-46.0); HEMOGLOBIN 13.6 GM/DL (11.6-15.3); LYMPH % 34.3 % (9.0-44.0); LYMPHOCYTE # 1.7 TH/MM3 (1.0-4.8); MEAN CELL VOLUME 93.4 FL (80.0-100.0); MEAN CORPUSCULAR HEMOGLOBIN 31.5 PG (27.0-34.0); MEAN CORPUSCULAR HGB CONC 33.7 % (32.0-36.0); MEAN PLATELET VOLUME 9.2 FL (7.0-11.0); MONO % 7.1 % (0.0-8.0); MONOCYTE # 0.4 TH/MM3 (0-0.9); PLATELET COUNT 224 TH/MM3 (150-450); RED BLOOD COUNT 4.32 MIL/MM3 (4.00-5.30); RED CELL DISTRIBUTION WIDTH 13.5 % (11.6-17.2)
[2017-09-01 13:37] LABS: BILIRUBIN, URINE NEG (NEG); BLOOD, URINE NEG (NEG); GLUCOSE,URINE NEG (NEG); KETONE, URINE NEG (NEG); NITRITE,URINE NEG (NEG); URINE COLOR YELLOW (YELLW/STRAW); URINE LEUKOCYTE ESTERASE NEG (NEG)
[2017-09-01 13:40] LABS: INTERNATIONAL NORMALIZED RATIO 0.9 RATIO; PROTHROMBIN TIME - PATIENT 9.3 SEC (9.8-11.6)
[2017-09-01 13:55] LABS: ALBUMIN 3.6 GM/DL (3.4-5.0); ALT (GPT) 50 U/L (10-53); AST (GOT) 31 U/L (15-37); BICARBONATE 29.8 MEQ/L (21.0-32.0); BLOOD UREA NITROGEN 15 MG/DL (7-18); CALCIUM 8.6 MG/DL (8.5-10.1); CHLORIDE 103 MEQ/L (98-107); CREATININE 0.56 MG/DL (0.50-1.00); GLOMERULAR FILTRATION RATE 110 ML/MIN (>89); GLUCOSE,FASTING 87 MG/DL (74-99); SODIUM (NA) 141 MEQ/L (136-145)
[2017-09-01 13:57] LABS: ALKALINE PHOSPHATASE 87 U/L (45-117); TOTAL BILIRUBIN ADULT 0.2 MG/DL (0.2-1.0); TOTAL PROTEIN 7.1 GM/DL (6.4-8.2)
== END ==
LOC: CPRE 11:36
PROVIDERS: ATTEND Neurological Surgery
DX: Z01.812 Encounter for preprocedural laboratory examination (principal); M51.36 Other intervertebral disc degeneration, lumbar region; M71.38 Other bursal cyst, other site
CPT/HCPCS: 36415; 80053; 81001; 85025; 85610; 85730; 87640; 87641

== ENCOUNTER 2017-09-03 07:54 | Inpatient (IN) | payer OTHER ==
[~2017-09-03] VITALS: Ht 158.8 cm; Wt 73.7 kg
[~2017-09-03 07:54] MED LIST changes: +BUPIVACAINE/EPINEPHRINE 0.5% PF 10 ML VIAL ONE; +GELFOAM SIZE 100 ONE; -MULT-65 PO; +THROMBIN (TOPICAL) 5,000 UNIT VIAL ONE; +VANCOMYCIN HCL 1000 MG VIAL ONE; +methylPREDNISolone ACETATE 40 MG/ML VIAL ONE
[2017-09-03] MEDS ORDERED: SODIUM CHLOR 0.9% 1000 ML INJ 1,000 ML IV SCH (08:15)
[2017-09-03] MEDS ORDERED: VANCOMYCIN 1 GM/200 ML PREMIX ON-CALL IV SCH (08:15)
[2017-09-03] MEDS ORDERED: POVIDONE IODINE 5% (ANTISEPSIS KIT) 4 APPLICATIONS EACH NARE PRN (08:15)
[2017-09-03] MEDS ORDERED: METOPROLOL TARTRATE 25 MG TAB PO PRN (08:15)
[2017-09-03] MEDS ORDERED: SODIUM CHLORID 0.9% 500 ML IV PRN (08:15)
[2017-09-03] MEDS ORDERED: CHLORHEXIDINE GLUCONATE 2 % 1 PACK (2 CLOTHS) TOPICAL PRN (08:15)
[2017-09-03] MEDS ORDERED: LACTATED RINGER'S 1000 ML IV PRN (08:15)
[2017-09-03] MEDS ORDERED: MIDAZOLAM HCL 2 MG/2 ML VIAL ONE ×2 (11:06)
[2017-09-03] MEDS ORDERED: fentaNYL CITRATE 250 MCG/5 ML AMP ONE (11:06)
[2017-09-03] MEDS ORDERED: NEOSTIGMINE 5 MG/5 ML SYRINGE IV PUSH ONE (12:00)
[2017-09-03] MEDS ORDERED: DEXAMETHASONE SOD PHOS 4 MG/ML VIAL IV ONE (12:00)
[2017-09-03] MEDS ORDERED: LACTATED RINGER'S 1000 ML INJ 1,000 ML IV ONE (12:00)
[2017-09-03] MEDS ORDERED: ROCURONIUM INJ 50 MG/5 ML SYRINGE IV PUSH ONE (12:00)
[2017-09-03] MEDS ORDERED: PROPOFOL 200 MG/20 ML AMP IV ONE (12:00)
[2017-09-03] MEDS ORDERED: ONDANSETRON HCL 4 MG/2 ML VIAL IV ONE (12:00)
[2017-09-03] MEDS ORDERED: GLYCOPYRROLATE 1 MG/5 ML SYRINGE IV PUSH ONE (12:00)
[2017-09-03] MEDS ORDERED: KETOROLAC TROMETHAMINE 30 MG/ML (IVP) VIAL IV PUSH ONE (12:00)
[2017-09-03] MEDS ORDERED: STERILE WATER FOR INJECTION 20 ML VIAL IV ONE (12:00)
[2017-09-03] MEDS ORDERED: PHENYLEPH/NS 1000 MCG/10 ML SYR IV ONE (12:00)
[2017-09-03] MEDS ORDERED: LIDOCAINE HCL 1% PF 5 ML SYRINGE OTHER ONE (12:00)
--- NOTE | 2017-09-03 13:32 | PD.OP ---
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 Sequential compression devices were placed for DVT prophylaxis. She was then turned in prone position on [place] frame and the Est[place] table and all pressure points adequately padded. The lumbar region was then shaved and prepped with a Betadine and ChloraPrep. Sterile draping undertaken with Ioban. Using the previous incision site at the L4-5 level was then made after infiltrating the skin with 0.5% Marcaine with epinephrine solution. The skin incision was made extending down through the fascia and then using the subperiosteal plane on the left side the muscular attachments to the spinous process and lamina were detached. Intraoperative fluoroscopy was used for level confirmation and further dissection undertaken using microtechnique with microscope magnification. The inferior portion of the left L4 and superior portion of the L5 lamina was then drilled out and the underlying ligamentum flavum also removed. There was significant facet arthropathy noted and the left medial portion of the L4-5 facet was also resected and the lateral recess decompressed. There was synovial cyst which is compressing on the lateral portion of the thecal sac and nerve roots which are decompressed the spinal canal and foramen opened. Epidural venous stasis which he with the bipolar cautery along with Gelfoam and thrombin and bone wax used at the laminotomy edges for hemostasis. The area was then copiously irrigated with vancomycin solution. The retractors removed and the muscle fascia proximal using 2-0 Vicryl interrupted stitches. 3-0 Vicryl subcuticular stitches were also placed in an interrupted fashion and planned skin closure was with Mastisol and Steri-Strips. A sterile dressing was then applied and the patient then turned in the supine position and extubated and taken to recovery room in stable condition. There were no intraoperative complications and all sponge and needle count was correct at the end of the procedure. Estimated blood loss about 25 cc. Lito Lima MD September 03, 2017 13:32
[2017-09-03] MEDS ORDERED: OXYC-395 PO (13:33)
[2017-09-03] MEDS ORDERED: CYCL10TA PO (13:33)
[2017-09-03] MEDS ORDERED: *HYDROmorphone PF 0.5 MG/0.5 ML PERIprocedure ONLY ONE ×3 (13:49→14:31)
[2017-09-03] MEDS ORDERED: DO NOT ADM ANY ANTICOAGULANT DRUGS PRN (14:45)
[2017-09-03 15:20] VITALS: BP 142/75; PULSE 69; RESP 20; TEMP 97.6; O2SAT 98
--- NOTE | 2017-09-03 17:59 | RADRPT ---
EXAM DATE: 09/03/2017 1:32 PM EDT AGE/SEX: 62 years / Female INDICATIONS: L4-L5 lumbar laminectomy, Level localization. CLINICAL DATA: This is the patient's initial encounter. Patient reports that signs and symptoms have been present for 1 day and indicates a pain score of Nonresponsive. MEDICAL/SURGICAL HISTORY: Non-responsive. Non-responsive. COMPARISON: [facility] – [place], SPINE LUMBAR LATERAL ONLY, 05/07/2017. . FINDINGS: Assuming 5 lumbar type vertebral bodies. Single crosstable fluoroscopic view of the lower lumbar spin e demonstrates a radiopaque marker at the L4 level with tip projecting at the L4 lamina. Visualized v ertebral body heights are intact. Sagittal alignment is maintained. CONCLUSION: 1. Radiopaque marker at the L4 level, as above. Electronically signed by: Stoney Moore MD 09/03/2017 5:57 PM EDT
== END 2017-09-03 15:55 | disposition home or self-care (01) | DRG 30 ==
LOC: HSDI 07:54 → EDSTATUS 11:00
PROVIDERS: ADMIT Neurological Surgery; ATTEND Neurological Surgery
PROC: 01NB0ZZ Release Lumbar Nerve, Open Approach (ICD-10-PCS; 2017-09-03)
PROC: 00BY0ZZ Excision of Lumbar Spinal Cord, Open Approach (ICD-10-PCS; principal; 2017-09-03 11:36)
DX: G96.19 Other disorders of meninges, not elsewhere classified (principal); I10 Essential (primary) hypertension; I34.1 Nonrheumatic mitral (valve) prolapse; M51.16 Intervertebral disc disorders with radiculopathy, lumbar region; M46.96 Unspecified inflammatory spondylopathy, lumbar region; Z88.5 Allergy status to narcotic agent; Z88.6 Allergy status to analgesic agent
CPT/HCPCS: 72020; 76000; J1030; J1100; J1170; J1885; J2250; J2370; J2405; J2710; J3010; J3370; J7120